=== PATIENT | male | born 1950 | race Two or more races ===

== ENCOUNTER 2019-06-07 08:48 | Outpatient (CLI) | payer OTHER | END 2019-06-07 09:30 | disposition home or self-care (01) | LOC: NUCLEAR 08:48 | DX: R59.9 Enlarged lymph nodes, unspecified (principal); R59.1 Generalized enlarged lymph nodes | CPT/HCPCS: 78816; A9552 ==

== ENCOUNTER 2021-07-27 15:29 | Emergency (ER) | payer OTHER ==
[~2021-07-27] VITALS: Ht 154.9 cm; Wt 54.4 kg
== END 2021-07-27 18:51 | disposition home or self-care (01) ==
LOC: ER 15:29
DX: B34.9 Viral infection, unspecified (principal); Z20.822 Contact with and (suspected) exposure to COVID-19

== ENCOUNTER 2021-09-01 09:01 | Outpatient (CLI) | payer OTHER | END 2021-09-01 09:11 | disposition home or self-care (01) | LOC: TOM 09:01 | PROVIDERS: ATTEND Internal Medicine Gastroenterology | DX: R10.33 Periumbilical pain (principal) ==

== ENCOUNTER 2022-06-18 09:21 | Outpatient (CLI) | payer OTHER | END 2022-06-18 15:15 | disposition home or self-care (01) | LOC: SONOGRAMA 09:21 | PROVIDERS: ATTEND General Practice | DX: R13.10 Dysphagia, unspecified (principal); Z04.9 Encounter for examination and observation for unspecified reason ==

== ENCOUNTER 2025-06-12 11:16 | Outpatient (CLI) | payer OTHER | END 2025-06-12 11:18 | disposition home or self-care (01) | LOC: RAD 11:16 | PROVIDERS: ATTEND Surgery Surgery of the Hand | DX: M15.0 Primary generalized (osteo)arthritis (principal) ==